=== PATIENT | female | born 1990 | race Caucasian/White ===

== ENCOUNTER 2018-02-07 23:37 | Emergency (ER) | payer SELFPAY ==
[~2018-02-07] VITALS: Ht 172.7 cm; Wt 78.2 kg
[2018-02-07 23:42] VITALS: BP 130/70; PULSE 75
[2018-02-08] MEDS ORDERED: RITALIN10 MG PO (00:19)
[2018-02-08] MEDS ORDERED: BIRTH CONTROL PO (00:19)
[2018-02-08 00:42] LABS: BASO # 0.1 (0.0-0.2); BASO % 0.6 % (0.0-2.0); EOS # 0.7 (0.0-0.7); EOS % 7.8 % (0-4.0); GRAN # 3.6 (1.4-6.5); GRAN % 40.1 % (42.2-75.2); HEMATOCRIT 38.6 % (37.0-47.0); LYMPH # 4.2 (1.2-3.4); LYMPH % 46.3 % (20.0-51.0); MEAN CELL VOLUME 90 fl (80.0-100.0); MEAN CORPUSCULAR HEMOGLOBIN 30 pg (27.0-31.0); MEAN CORPUSCULAR HGB CONC 34 g/dl (33.0-37.0); MEAN PLATELET VOLUME 9.8 fl (7.4-10.4); MONO # 0.4 (0.1-0.6); MONO % 4.9 % (1.7-9.3); PLATELET COUNT 246 K/mm3 (130-400); REDCELL DISTRIBUTION WIDTH-CV 12.7 % (11.5-14.5)
[2018-02-08 00:53] LABS: ACETAMINOPHEN < 10 ug/mL (10-30); ALANINE AMINOTRANSFERASE 30 U/L (9-52); ALBUMIN 4.2 gm/dL (3.5-5.0); ALCOHOL(ethanol),MEDICAL < 10 mg/dL; ALKALINE PHOSPHATASE 63 U/L (50-136); ANION GAP 6 mmol/L (7-16); AST,SGOT 18 U/L (15-37); BILIRUBIN,TOTAL 0.2 mg/dL (0.0-1.0); BLOOD UREA NITROGEN 13 mg/dL (7-17); CARBON DIOXIDE 30 mmol/L (22-30); CHLORIDE 104 mmol/L (98-107); CREATININE, serum 0.65 mg/dL (0.52-1.25); GLUCOSE 73 mg/dL (74-106); MAGNESIUM 1.9 mg/dL (1.6-2.3); POTASSIUM 3.9 mmol/L (3.4-5.0); SALICYLATE < 1.0 mg/dL; SODIUM 140 mmol/L (137-145); TOTAL PROTEIN 7.5 gm/dL (6.4-8.2)
[2018-02-08 01:27] LABS: TRICYCLIC ANTIDEPRESS URINE POSITIVE
[2018-02-08 02:10] VITALS: TEMP 97.3
== END 2018-02-08 02:11 | disposition home or self-care (01) ==
LOC: COL.ER 23:37
PROVIDERS: Nurse Practitioner
DX: F11.20 Opioid dependence, uncomplicated (principal); F17.210 Nicotine dependence, cigarettes, uncomplicated; F12.90 Cannabis use, unspecified, uncomplicated